=== PATIENT | female | born 1970 | race American Indian/Alaskan Native ===

== ENCOUNTER 2024-11-27 17:57 | Emergency (ER) | payer OTHER, SELFPAY ==
[2024-11-27 18:29] VITALS: BP 145/93; PULSE 76; RESP 18; TEMP 36.9; O2SAT 96; BMI 36.0
--- NOTE | 2024-11-27 18:30 | EKG_ITS ---
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
--- NOTE | 2024-11-27 18:48 | XR_ITS ---
Examination: PA chest upright single view Technique: Upright PA chest single view Exam date and time: November 27, 2024 1854 hrs. Indications: Onset SOB today. Findings: Mild enlargement cardiac contour Mild vascular congestion No pneumonia or pulmonary edema Impression: Mild vascular congestion
--- NOTE | 2024-11-27 18:48 | EDRME_ITS ---
Rapid Medical Screening Exam RME Arrival date/time: 11/27/24 17:57 54F with history of hypothyroidism presents to ED with 1 day of CP and SOB. 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 This CP/SOB has been an ongoing issue, but daughter told her to come in when she had the CP/SOB again. Chief Complaint: Shortness of Breath/Dyspnea Vital signs: Vital Signs Temperature 98.5 F 11/27/24 18:29 Pulse Rate 76 11/27/24 18:29 Respiratory Rate 18 11/27/24 18:29 Blood Pressure 145/93 H 11/27/24 18:29 Pulse Oximetry (%) 96 11/27/24 18:29 Oxygen Delivery Method Room Air 11/27/24 18:29
[2024-11-27 19:31] LABS: Basophils # (Auto) 0.1 Thou/mm3 (0.0-0.2); Basophils % (Auto) 1 % (0-2.5); Eosinophils # (Auto) 0.1 Thou/mm3 (0.0-0.5); Eosinophils % (Auto) 2 % (0-10); Hematocrit 41.2 % (36.0-46.0); Hemoglobin 13.9 g/dL (12.0-16.0); Immature Granulocytes % (Auto) 0 % (0-0); Immature Granulocytes Auto 0.02 Thou/mm3 (0.00-0.00); Lymphocytes # (Auto) 2.1 Thou/mm3 (1.0-4.8); Lymphocytes % (Auto) 27 % (10-50); Mean Corpuscular HGB Conc 33.7 g/dl (31.0-37.0); Mean Corpuscular Hemoglobin 28.7 pg (25.0-35.0); Mean Corpuscular Volume 85 fL (80-100); Monocytes # (Auto) 0.7 Thou/mm3 (0.0-0.8); Monocytes % (Auto) 9 % (0-12); Neutrophils # (Auto) 4.8 Thou/mm3 (1.8-7.7); Neutrophils % (Auto) 61 % (37-80); Nucleated Red Blood Cell % 0 /100 WBC (0); Platelet Count 350 Thou/mm3 (140-440); RDW Standard Deviation 38.3 fL (36.4-46.3); Red Blood Count 4.85 Miln/mm3 (4.00-5.20); White Blood Count 7.9 Thou/mm3 (3.6-11.0)
[2024-11-27 19:39] VITALS: BP 152/99; PULSE 74; RESP 18; TEMP 36.9; O2SAT 96
[2024-11-27 19:43] LABS: B-Type Natriuretic Peptide < 20 pg/mL (0-100)
[2024-11-27 19:49] LABS: Alanine Aminotransferase 35 U/L (10-49); Albumin, Serum 4.7 gm/dL (3.5-5.0); Albumin/Globulin Ratio 1.8 (1.2-2.2); Alkaline Phosphatase 109 U/L (46-116); Anion Gap 8 (7-16); Aspartate Amino Transferase 22 U/L (0-34); BUN/Creatinine Ratio 13 Ratio (12-20); Bilirubin,Total 0.7 mg/dL (0.3-1.2); Blood Urea Nitrogen 12 mg/dL (9-23); Calcium 9.7 mg/dL (8.3-10.6); Calcium (Corrected) 9.7 mg/dL (8.5-10.1); Chloride 106 mMol/L (98-107); Creatinine (Component) 0.9 mg/dL (0.6-1.3); Estimated Creatinine Clearance 75.1 mL/min (>60); Free T4 (Free Thyroxine) 1.29 ng/dL (0.89-1.76); Globulin 2.6 gm/dL (2.3-3.5); Glucose 117 mg/dL (74-106); Magnesium 2.1 mg/dL (1.6-2.6); Osmolality,Calculated 285 (275-295); Potassium 3.6 mMol/L (3.4-5.1); Sodium 143 mMol/L (136-145); Thyroid Stimulating Hormone 4.88 uIU/mL (0.55-4.78); Total Protein 7.3 gm/dL (5.7-8.2); Troponin I < 0.002 ng/mL (0.0-0.045); eGFR > 60 See Note
[2024-11-27 21:41] VITALS: BP 151/93; PULSE 67; RESP 18; TEMP 36.9; O2SAT 98
--- NOTE | 2024-11-27 22:03 | PD.EDSOB ---
ED SOB =RME/HPI General Chief Complaint: Shortness of Breath/Dyspnea Stated Complaint: SOB X 2 weeks, chest pain/ back pain Time Seen by Provider: 11/27/24 22:03 Source: patient Arrival date/time: 11/27/24 17:57 This is a 54-year-old female who presents to the emergency department with complaints of chest pain and shortness of breath which she is had is an ongoing issue for 1 year. She does report that lately for the last 2 weeks she has been having increased chest pain. She has been checking her blood pressure and her blood pressure been slightly elevated in the 140s. She does not take any medication other levothyroxine for her hypothyroidism. She denies any nausea vomiting radiating pain no diaphoresis. Mode of arrival: ambulatory RME / HPI RME / HPI Narrative: 11/27/24 17:57 54F with history of hypothyroidism presents to ED with 1 day of CP and SOB. 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 This CP/SOB has been an ongoing issue, but daughter told her to come in when she had the CP/SOB again. Related Data Home Medications ?Medication ?Instructions ?Recorded ?Confirmed levothyroxine 100 mcg tablet 1 tab PO QDAY 04/18/22 08/07/23 Allergies Allergy/AdvReac Type Severity Reaction Status Date / Time No Known Allergies Allergy Verified 11/27/24 18:04 Review of Systems Review of Systems Systems Reviewed: All systems reviewed, normal except as documented Narrative Review of Systems: Gen: No fever, no chills, no weight loss EYES: No discharge, no visual changes, no pain HEENT: No ear pain, no congestion, no sore throat PULM: No shortness of breath, no cough, no congestion CV: + chest pain, no dyspnea on exertion, no palpitations GI: No nausea, no vomiting, no diarrhea, no pain, no constipation : No frequency, no urgency, no dysuria Musc/skel: No joint pain, no back pain Skin: No rash Psyc: No hallucinations, no depression Heme/Lymph: No easy bleeding or bruising tendencies Neuro: No weakness, no headache ED Exam Narrative Physical exam: General: Sittiing in Exam table in no acute distress, answering questions appropriately HENT: normocephalic, atraumatic, EOMI, PERRLA, moist mucous membranes Chest: chest wall is nontender Cardiac: regular rate and rhythm, normal S1 and S2, no murmurs, rubs, or gallops, capillary refill ?2 seconds Pulmonary: clear to auscultation bilaterally, no wheezing, crackles, or rhonchi Abdominal: active bowel sounds, soft, nontender, nondistended Neuro: A&OX3, CN II-XII intact, sensation grossly intact bilaterally in UE and LE. Skin: no rashes, no ecchymosis Ext: no lower extremity edema Course Quality Measures none Orders Category Date Time Status EKG (ED ONLY) *Do not use* NOW Care 11/27/24 18:30 Completed EKG (ED Only) Stat Exams 11/27/24 18:30 Draft XR chest 1V portable Stat Exams 11/27/24 18:48 Completed B-Type Natriuretic Peptide Stat Lab 11/27/24 19:00 Completed CBC Stat Lab 11/27/24 19:00 Completed Comprehensive Metabolic Panel Stat Lab 11/27/24 19:00 Completed Free T4 (Free Thyroxine) Stat Lab 11/27/24 19:00 Completed Magnesium Stat Lab 11/27/24 19:00 Completed TSH [Thyroid Stimulating Hormone] Stat Lab 11/27/24 19:00 Completed Troponin I Stat Lab 11/27/24 19:00 Completed Vital Signs Vital signs: Vital Signs Temperature 98.5 F 11/27/24 18:29 Pulse Rate 76 11/27/24 18:29 Respiratory Rate 18 11/27/24 18:29 Blood Pressure 145/93 H 11/27/24 18:29 Pulse Oximetry (%) 96 11/27/24 18:29 Oxygen Delivery Method Room Air 11/27/24 18:29 Shortness of Breath / Dyspnea Patient data External records reviewed:: [facility] previous records Clinical information provided by:: patient Social determinants that could affect healthcare access:: none Patient has the following chronic illnesses:: Hypothyroidism How is presenting disease/condition affected by chronic disease/condition?: uneffected by Evaluation data The following diagnostics were reviewed and interpreted by me:: lab results, radiology exam(s) and EKG tracing(s) Lab and/or radiology exams considered but not ordered:: No Interpretation Summary: Examination: PA chest upright single view Technique: Upright PA chest single view Exam date and time: November 27, 2024 1854 hrs. Indications: Onset SOB today. Findings: Mild enlargement cardiac contour Mild vascular congestion No pneumonia or pulmonary edema Impression: Mild vascular congestion Medications / Prescriptions Medications or Prescriptions considered but not ordered:: no Medication administrations:: no Consultations Consultation(s) initiated? (list below): No Diagnosis Shortness of Breath Differential Diagnosis: acute exacerbation of chronic obstructive airways disease, congestive heart failure, community acquired pneumonia and asthma with exacerbation Most likely diagnosis given after review of the tests above:: Chest pain Admission Indicated Admission indicated?: not indicated Admission Request Was there a request for admission?: No Disposition Plan Disposition Plan: Discharge Discharge Attestation Discharge Attestation: The patient and all family members were given an opportunity to ask questions and understood the discharge instructions. Discharge instructions specifically effects, indications for sooner follow up or return to the emergency department, and the expected course of current diagnosis. Patient condition: Stable Discharge Plan Plan Patient Disposition: HOME (Self Care) Patient condition on transfer: Stable Prescriptions/Referrals Prescriptions/Med Rec: No Action levothyroxine 100 mcg tablet 1 tab PO QDAY Patient Comments: TAKE 1 TABLET BY MOUTH EVERY DAY Referrals: Calvin Frias PA-C [Primary Care Provider] - In 1 week Problem List Clinical Impression: Chest pain at rest Patient/Caregiver Discharge Instructions Discharge Activity: activity as tolerated Education Materials: ED Chest Pain, Uncertain Cause Additional Instructions: As discussed all your labs today were pretty much normal. Please have a close follow-up with your primary doctor. You might need an outpatient referral for cardiac stress test. You can also have an H. pylori test completed. Return to the emergency department this any worsening symptoms or change in condition. Print Language: Maldivian Stand Alone Forms: Sabina Award Info., Patient Portal Info Letter TANNA/KASSANDRA Supervising Physician TANNA/KASSANDRA Supervising Physician: dr. Azul
== END 2024-11-27 22:48 | disposition home or self-care (01) ==
PROVIDERS: Physician Assistant; Emergency Provider Emergency Medicine; PCP Physician Assistant
DX: R07.9 Chest pain, unspecified (principal); E03.9 Hypothyroidism, unspecified
CPT/HCPCS: 36415; 71045; 80053; 83735; 83880; 84439; 84443; 84484; 85025; 93005; 99283

== ENCOUNTER → 2025-02-26 | Outpatient (CLI) | payer OTHER, SELFPAY ==
--- NOTE | 2025-02-26 13:45 | XR_ITS ---
Examination: Screening digital mammography, bilateral Computer aided detection 3-D breast Tomosynthesis, bilateral Date and time of exam: February 26, 2025 1357 hours Compared to mammograms dating to January 05, 2013 Indication: Screening Technique: Nonmagnified MLO, CC views of the breasts to been obtained, reconstructed from 3-D Tomosynthesis images. R2 computer aided detection program utilized for evaluation of suspicious masses and/or abnormal calcifications. 3-D Tomosynthesis images obtained. Findings: Scattered areas of fibroglandular density Benign calcifications. No interval suspicious masses Impression: BI-RADS category II: Benign Findings. Recommend 1 year follow-up mammogram.
== END | disposition home or self-care (01) ==
LOC: CDIM 13:48
PROVIDERS: Referring Provider Physician Assistant; Visit Provider Physician Assistant
DX: Z12.31 Encounter for screening mammogram for malignant neoplasm of breast (principal); R92.323 Mammographic fibroglandular density, bilateral breasts; R92.1 Mammographic calcification found on diagnostic imaging of breast
CPT/HCPCS: 77063; 77067